=== PATIENT | male | born 1995 | race Caucasian/White ===

== ENCOUNTER 2021-10-12 17:18 | Emergency (ER) | payer SELFPAY ==
[2021-10-12 17:27] VITALS: BP 119/83; PULSE 89; RESP 18; TEMP 98; BMI 25.8
[2021-10-12] MEDS ORDERED: SULFAMETHOXAZOLE/TRIMETHOPRIM 800MG/160MG D.S. TABLET PO ONE (18:43)
[2021-10-12] MEDS ORDERED: SULFAMETHOXAZOLE/TRIMETHOPRIM 800MG/160MG D.S. TABLET ONE (18:49)
== END 2021-10-12 20:01 | disposition home or self-care (01) ==
LOC: JERFT 17:18 → JER 17:18 → JERFT 20:01
DX: L02.211 Cutaneous abscess of abdominal wall (principal)
CPT/HCPCS: 99283-25